=== PATIENT | male | born 1970 | race Caucasian/White ===

== ENCOUNTER 2017-01-12 13:05 | Emergency (ER) | payer OTHER ==
[2017-01-12] MEDS ORDERED: IBUPROFEN 800 MG TABLET PO ONE (14:27)
[2017-01-12] MEDS ORDERED: ACETAMINOPHEN 325 MG TABLET PO ONE (15:02)
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
[2017-01-12 16:34] VITALS: BP 135/81
== END 2017-01-12 16:34 | disposition home or self-care (01) ==
LOC: ER 13:05
DX: M54.5 Low back pain (principal); V87.7XXA Person injured in collision between other specified motor vehicles (traffic), initial encounter
CPT/HCPCS: 72110; 99283